=== PATIENT | female | born 1995 | race Caucasian/White ===

== ENCOUNTER → 2023-07-10 | Outpatient (CLI) | payer SELFPAY ==
[~2023-07-10] MED LIST: HOLD METFORMIN - RECEIVED CONTRAST 20 ML VIAL IV SCH; IOHEXOL 350 MG/ML 100 ML (OMNIPAQUE 350) VIAL IV ONE; NS 100 ML (IVPB) BAG IV ONE
--- NOTE | 2023-07-10 12:05 | Diagnostic Imaging Report ---
PROCEDURE: CT neck soft tissue with contrast. TECHNIQUE: Multiple contiguous axial images were obtained through the neck after the administration of contrast. Auto Exposure Controls were utilized during the CT exam to meet ALARA standards for radiation dose reduction. INDICATION: Palpable lump under the right jaw. BB markers placed at the area of palpable abnormality in the right neck. This corresponds to the region of the right submandibular gland which appears unremarkable. The submandibular glands are symmetric bilaterally without evidence of a discrete mass. There are normal-sized submandibular lymph nodes bilaterally as well. Parotid glands appear to be symmetric bilaterally. No cervical lymphadenopathy is identified. No fluid collection is identified. Posterior nasopharynx and oropharynx as well as the epiglottis and larynx are unremarkable. No thyroid masses are seen. IMPRESSION: Essentially unremarkable CT soft tissue neck study with contrast. No neck mass, lymphadenopathy or fluid collection is identified. Dictated by: Dictated on workstation # [id number]
== END ==
LOC: RAD 09:40
PROVIDERS: ATTEND Otolaryngology Otolaryngology/Facial Plastic Surgery
DX: R22.1 Localized swelling, mass and lump, neck (principal)
CPT/HCPCS: 70491

== ENCOUNTER → 2023-08-14 | Outpatient (CLI) | payer SELFPAY ==
--- NOTE | 2023-08-14 12:09 | Diagnostic Imaging Report ---
INDICATION: Lump in the right neck. The study is performed for further evaluation. FINDINGS: Sonographic interrogation of the area of patient's lump in the right neck just below the mandible was performed. There is a hypoechoic mass at the area of palpable abnormality just lateral to the submandibular gland measuring 1.7 x 1.9 x 0.7 cm. This may represent a lymph node. No definite internal vascularity is present. No other abnormalities are identified. No fluid collections are detected. IMPRESSION: There is an ovoid, circumscribed hypoechoic solid nodule just below the skin surface and lateral to the right submandibular gland accounting for the patient's palpable abnormality. This most likely represents a mildly enlarged lymph node. This could potentially represent a reactive node. Follow-up to confirm stability or resolution could be performed. If the patient wishes, this could likely be biopsied utilizing ultrasound guidance. Dictated by: Dictated on workstation # [id number]
== END ==
LOC: RAD 11:00
PROVIDERS: ATTEND Otolaryngology Otolaryngology/Facial Plastic Surgery
DX: R22.1 Localized swelling, mass and lump, neck (principal)
CPT/HCPCS: 76536

== ENCOUNTER → 2023-08-24 | Outpatient (CLI) | payer SELFPAY ==
[~2023-08-24] VITALS: Ht 172.7 cm; Wt 61.4 kg
[~2023-08-24] MED LIST changes: -HOLD METFORMIN - RECEIVED CONTRAST 20 ML VIAL IV SCH; -IOHEXOL 350 MG/ML 100 ML (OMNIPAQUE 350) VIAL IV ONE; +LIDOCAINE 1% INJ 10 ML VIAL INJ STA; -NS 100 ML (IVPB) BAG IV ONE
--- NOTE | 2023-08-24 09:48 | Diagnostic Imaging Report ---
INDICATION: Right neck mass. Patient presents for ultrasound-guided core biopsy. Patient brought to the procedure room and placed on the table in the left side down decubitus position. Ultrasound imaging of the right neck was performed to evaluate appropriate entry site. The right neck was then prepped and draped in usual sterile fashion. Small amount of 1% lidocaine was utilized for local anesthesia. Multiple core biopsies were obtained of the ovoid solid nodule in the right neck utilizing the 18-gauge [place] needle. Needle was removed and hemostasis was obtained. Patient tolerated the procedure well left the department in stable condition. IMPRESSION: Successful ultrasound guided core biopsy of the right neck mass. Pathology results are currently pending. Dictated by: Dictated on workstation # [id number]
== END ==
LOC: RAD 08:28
PROVIDERS: ATTEND Otolaryngology Otolaryngology/Facial Plastic Surgery
DX: R22.1 Localized swelling, mass and lump, neck (principal)
CPT/HCPCS: 76942